=== PATIENT | male | born 1990 | race Caucasian/White ===

== ENCOUNTER 2017-06-17 09:44 | Emergency (ER) | payer MEDICAID ==
[2017-06-17] MEDS: HYDROCODONE/APAP (10/325) TAB PO (10:47)
[2017-06-17] MEDS: ONDANSETRON (1 MG/1.25 ML PO SYG) PO (10:48)
== END 2017-06-17 12:05 | disposition home or self-care (01) ==
LOC: FTE 09:44
DX: S62.115A Nondisplaced fracture of triquetrum [cuneiform] bone, left wrist, initial encounter for closed fracture (principal); S52.501A Unspecified fracture of the lower end of right radius, initial encounter for closed fracture; S52.614A Nondisplaced fracture of right ulna styloid process, initial encounter for closed fracture; V00.131A Fall from skateboard, initial encounter; Y92.9 Unspecified place or not applicable
CPT/HCPCS: 29125; 73110-LT; 73110-RT; 99284-25